=== PATIENT | male | born 2000 | race Caucasian/White ===

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

== ENCOUNTER 2022-02-23 15:40 | Emergency (ER) | payer OTHER ==
[~2022-02-23] VITALS: Ht 180.3 cm; Wt 56.7 kg
[2022-02-23] MEDS ORDERED: CODEINE-GUAIFE120 ML PO (15:56)
[2022-02-23] MEDS ORDERED: DOXYCYCLINE HY100 MG PO (15:56)
== END 2022-02-23 16:10 | disposition home or self-care (01) ==
LOC: ED 15:40
DX: J40 Bronchitis, not specified as acute or chronic (principal)
CPT/HCPCS: 99283